=== PATIENT | male | born 1960 | race Two or more races ===

== ENCOUNTER 2016-12-02 09:28 | Outpatient (CLI) | payer BC ==
[2016-12-02 10:04] LABS: #Basophils 0.1 thou/uL (0.0-0.2); #Eosinphils 0.2 thou/uL (0.0-0.7); #Lymphocytes 2.6 thou/uL (1.20-3.40); #Monocytes 0.5 thou/uL (0.11-0.59); %Basophils 1.8 % (0.0-1.0); %Eosinophils 3.7 % (0.0-10.0); %Lymphocytes 48.5 % (21.0-51.0); %Monocytes 9.3 % (0.0-10.0); %Neutrophils 36.7 % (42.0-75.0); Hemoglobin 15.3 g/dL (14.0-18.0); Mean Corpuscular HGB CONC 33.6 g/dL (32.0-36.0); Mean Corpuscular Hemoglobin 30.5 pg (27.0-31.0); Mean Corpuscular Volume 90.6 fl (80.0-94.0); Mean Platelet Volume 7.4 fL (7.4-10.4); Platelet Count 372 thou/uL (130-400); RBC Distribution Width 12.1 % (11.5-14.5); Red Blood Cell (RBC) Count 5.01 mill/uL (4.70-6.10); White Blood Cell (WBC) Count 5.5 thou/uL (4.8-10.8)
[2016-12-02 10:27] LABS: ALT (SGPT) 26 U/L (8-55); AST (SGOT) 19 U/L (5-34); Albumin 4.3 g/dL (3.5-5.0); Alkaline Phosphatase 88 U/L (40-150); Anion Gap 14 mmol/L (10-20); BUN (Urea Nitrogen) 14 mg/dL (8.4-25.7); Bilirubin, Total 0.5 mg/dL (0.2-1.2); Calc. Creatinine Clearance 0 mL/min (70-130); Calcium 9.4 mg/dL (7.8-10.44); Carbon Dioxide 26 mmol/L (22-29); Cardiac Risk 5.4 (Less than 4.5); Chloride 106 mmol/L (98-107); Cholesterol 178 mg/dl (< 200 Desired); Estimated GFR-MDRD 64; Globulin 3.5 g/dL (2.4-3.5); Glucose 97 mg/dL (70-105); HDL Cholesterol 33 mg/dL (>60 Neg Risk); LDL Cholesterol, Calculated 114 mg/dL; Potassium 4.5 mmol/L (3.5-5.1); Protein, Total 7.8 g/dL (6.0-8.3); Sodium 141 mmol/L (136-145); Triglycerides 156 mg/dL (Less than 150)
== END 2016-12-02 09:29 ==
LOC: HPCALD 09:28
PROVIDERS: ATTEND Physician Assistant
DX: Z00.01 Encounter for general adult medical examination with abnormal findings (principal)
CPT/HCPCS: 36415; 80053; 80061; 84443; 85025

== ENCOUNTER 2017-07-16 16:44 | Emergency (ER) | payer BC ==
[2017-07-16 18:35] LABS: #Basophils 0.1 thou/uL (0.0-0.2); #Lymphocytes 1.9 thou/uL (1.20-3.40); #Monocytes 0.7 thou/uL (0.11-0.59); #Neutrophils 2.8 thou/uL (1.40-6.50); %Basophils 1.8 % (0.0-1.0); %Eosinophils 0.5 % (0.0-10.0); %Lymphocytes 33.6 % (21.0-51.0); %Neutrophils 51.1 % (42.0-75.0); Hemoglobin 14.4 g/dL (14.0-18.0); Mean Corpuscular HGB CONC 32.5 g/dL (32.0-36.0); Mean Corpuscular Hemoglobin 29.4 pg (27.0-31.0); Mean Corpuscular Volume 90.7 fl (80.0-94.0); Platelet Count 277 thou/uL (130-400); RBC Distribution Width 12.7 % (11.5-14.5); Red Blood Cell (RBC) Count 4.89 mill/uL (4.70-6.10); White Blood Cell (WBC) Count 5.5 thou/uL (4.8-10.8)
[2017-07-16 18:42] LABS: Anion Gap 16 mmol/L (10-20); BUN (Urea Nitrogen) 16 mg/dL (8.4-25.7); Calc. Creatinine Clearance 0 mL/min (70-130); Calcium 9.4 mg/dL (7.8-10.44); Carbon Dioxide 26 mmol/L (22-29); Chloride 103 mmol/L (98-107); Estimated GFR-MDRD 53; Glucose 101 mg/dL (70-105); Potassium 4.3 mmol/L (3.5-5.1); Sodium 141 mmol/L (136-145)
--- NOTE | 2017-07-16 19:08 | CT ---
EXAM: NONCONTRAST HEAD CT 07/16/17 HISTORY: Trauma. Patient awoke to find himself on the ground. Posttraumatic pain. COMPARISON: None. TECHNIQUE: A noncontrast head CT is performed from skull base to skull vertex. FINDINGS: No parenchymal hemorrhage. No extra-axial hematoma. No midline shift. Basilar cisterns are patent. Br ain volume is age appropriate. Cortical rossi-white matter differentiation is preserved. Ventricles and sulci are patent and symmetric. Mucosal disease of the visualized paranasal sinuses. Adequate mastoid air cell aeration. Intact megan rium. IMPRESSION: No intracranial posttraumatic sequela. POS: [facility]
--- NOTE | 2017-07-16 19:13 | CT ---
EXAM: CERVICAL SPINE CT WITHOUT CONTRAST 07/16/17 HISTORY: Posttraumatic pain. Patient woke up on the ground and having neck pain. COMPARISON: None. TECHNIQUE: A cervical spine CT is performed without contrast. Reformatted images are submitted for interpretatio n. FINDINGS: Lateral masses of C1 and C2 articulate appropriately. Appropriate articulation of the facets. Odontoi d process is intact. Straightening of the normal cervical lordosis likely due to patient position, muscle spasm or cervica l collar. Current study is not tailored to assess for ligamentous injury. No prevertebral soft tissue swelling. No epidural hematoma. There are varying degrees of central jocelin l stenosis and foraminal narrowing on the basis of degenerative change. Moderate central canal stenos is at the C5-C6 level due to broad based disc bulge with a left paracentral component. Varying degree s of foraminal stenosis. Cervical spine vertebral body height is maintained. No fracture. IMPRESSION: 1. No fracture. 2. Straightening of the normal cervical lordosis as above. Current study is not tailored to asse ss for ligamentous injury. MRI if clinically warranted. POS: [facility]
== END 2017-07-16 19:15 | disposition home or self-care (01) ==
LOC: BURERS 16:44
DX: S13.4XXA Sprain of ligaments of cervical spine, initial encounter (principal); S00.03XA Contusion of scalp, initial encounter; W18.09XA Striking against other object with subsequent fall, initial encounter
CPT/HCPCS: 36415; 70450; 72125; 80048; 85025; 87804; 93005